=== PATIENT | male | born 1970 | race Caucasian/White ===

== ENCOUNTER → 2016-10-18 | Outpatient (CLI) | payer OTHER ==
[~2016-10-18] MED LIST: /CARB20TAB OR; FLUP25VL IM; GABA-283 PO; RISP2TAB12 OR; RISPERDAL CONSTA IM; TRAZ50TA OR
[2016-10-18 10:22] LABS: MEAN CORPUSCULAR HEMOGLOBIN 32.2 pg (27.0-33.0); MEAN CORPUSCULAR HGB CONC 33.5 g/dl (32.0-36.5); MEAN CORPUSCULAR VOLUME 96.2 fl (80.0-96.0); RED CELL DISTRIBUTION WIDTH 13.4 % (11.5-14.5); WHITE BLOOD COUNT 9.1 K/mm3 (4.0-10.0)
[2016-10-18 11:03] LABS: ALBUMIN/GLOBULIN RATIO 1.54 (1.00-1.93); ALKALINE PHOSPHATASE 125 U/L (45-117); ALT/SGPT 38 U/L (12-78); ANION GAP 9 MEQ/L (8-16); AST/SGOT 17 U/L (15-37); BILIRUBIN,DIRECT < 0.1 MG/DL (0.0-0.2); BILIRUBIN,TOTAL 0.2 MG/DL (0.2-1.0); BLOOD UREA NITROGEN 6 MG/DL (7-18); CALCIUM LEVEL 8.4 MG/DL (8.5-10.1); CARBON DIOXIDE LEVEL 25 MEQ/L (21-32); CHLORIDE LEVEL 97 MEQ/L (98-107); CHOLESTEROL LEVEL 129 MG/DL (<200); CREATININE FOR GFR 0.79 MG/DL (0.70-1.30); GLOMERULAR FILTRATION RATE > 60.0 (>60); GLUCOSE, FASTING 87 MG/DL (70-105); PHOSPHORUS LEVEL 2.9 MG/DL (2.5-4.9); POTASSIUM SERUM 4.2 MEQ/L (3.5-5.1); SODIUM LEVEL 131 MEQ/L (136-145); TOTAL PROTEIN 6.6 GM/DL (6.4-8.2); TRIGLYCERIDES LEVEL 113 MG/DL (<150)
== END ==
LOC: M LAB 09:33
PROVIDERS: ATTEND Nurse Practitioner Psychiatric/Mental Health
DX: Z51.81 Encounter for therapeutic drug level monitoring (principal); Z79.899 Other long term (current) drug therapy

== ENCOUNTER → 2016-11-19 | Outpatient (CLI) | payer OTHER ==
[2016-11-19 17:47] LABS: MEAN CORPUSCULAR HEMOGLOBIN 33.4 pg (27.0-33.0); MEAN CORPUSCULAR HGB CONC 33.9 g/dl (32.0-36.5); MEAN CORPUSCULAR VOLUME 98.5 fl (80.0-96.0); WHITE BLOOD COUNT 6.6 K/mm3 (4.0-10.0)
[2016-11-19 18:21] LABS: ALBUMIN 4.1 GM/DL (3.2-5.2); ALBUMIN/GLOBULIN RATIO 1.32 (1.00-1.93); ALKALINE PHOSPHATASE 122 U/L (45-117); ALT/SGPT 29 U/L (12-78); ANION GAP 7 MEQ/L (8-16); AST/SGOT 16 U/L (15-37); BILIRUBIN,TOTAL 0.3 MG/DL (0.2-1.0); BLOOD UREA NITROGEN 7 MG/DL (7-18); CALCIUM LEVEL 8.6 MG/DL (8.5-10.1); CARBON DIOXIDE LEVEL 25 MEQ/L (21-32); CHLORIDE LEVEL 104 MEQ/L (98-107); CREATININE FOR GFR 0.83 MG/DL (0.70-1.30); GLOMERULAR FILTRATION RATE > 60.0 (>60); GLUCOSE, FASTING 87 MG/DL (70-105); POTASSIUM SERUM 4.6 MEQ/L (3.5-5.1); SODIUM LEVEL 136 MEQ/L (136-145); TOTAL PROTEIN 7.2 GM/DL (6.4-8.2)
== END ==
LOC: M LAB 16:44
PROVIDERS: ATTEND Nurse Practitioner Psychiatric/Mental Health
DX: F25.9 Schizoaffective disorder, unspecified (principal)

== ENCOUNTER → 2020-06-05 | Outpatient (REF) | payer OTHER ==
[~2020-06-05] MED LIST changes: -/CARB20TAB OR; +CARB1TAB20 OR; -GABA-283 PO; +GABA-845 PO
== END ==
LOC: M LAB REF 15:40
PROVIDERS: ATTEND Surgery
DX: Z20.828 Contact with and (suspected) exposure to other viral communicable diseases (principal)

== ENCOUNTER 2025-05-24 09:21 | Inpatient (IN) | payer OTHER, SELFPAY ==
[~2025-05-24] VITALS: Ht 180.3 cm; Wt 85.8 kg
[~2025-05-24 09:21] MED LIST changes: +FLUP25VI3 IM; -FLUP25VL IM; +GABA-284 PO; -GABA-845 PO
[2025-05-24] MEDS: MIDAZOLAM INJ 2 MG/2 ML VIAL IM ONE (09:50)
[2025-05-24] MEDS: OLANZapine INTRAMUSCULAR 10MG VIAL IM ONE (09:50)
[2025-05-24 10:49] LABS: BASO # 0.0 10^3/uL (0.0-0.2); BASO % 0.3 % (0.0-1.0); EOS # 0.0 10^3/uL (0.0-0.5); EOS % 0.2 % (0.0-3.0); LYMPH # 2.2 10^3/uL (1.5-5.0); LYMPH % 18.4 % (24.0-44.0); MONO # 1.1 10^3/uL (0.0-0.8); MONO % 9.1 % (2.0-8.0); NEUTROPHILS # 8.6 10^3/uL (1.5-8.5); NEUTROPHILS % 71.7 % (36.0-66.0); PLATELET COUNT, AUTOMATED 304 10^3/uL (150-450)
[2025-05-24 11:12] LABS: INR 0.95
[2025-05-24 11:22] LABS: ETHYL ALCOHOL (ETHANOL) < 0.003 % (0.000-0.010); SALICYLATE LEVEL < 3.0 MG/DL (<30)
[2025-05-24 11:24] LABS: ALT/SGPT 43 U/L (7.0-40); AST/SGOT 74 U/L (<34); CALCIUM LEVEL 9.7 MG/DL (8.5-10.1); CARBON DIOXIDE LEVEL 28 MMOL/L (20-31); CHLORIDE LEVEL 101 MMOL/L (98-107); CK-MB VALUE MASS 14.6 NG/ML (<3.6); CREATININE FOR GFR 0.78 MG/DL (0.70-1.30); GLOMERULAR FILTRATION RATE > 90.0 (>56); POTASSIUM SERUM 4.6 MMOL/L (3.5-5.1); SODIUM LEVEL 138 MMOL/L (136-145)
[2025-05-24 12:43] LABS: CPK CREATINE PHOSPHOKINASE 1580 U/L (46-171); MB/CK RELATIVE INDEX 0.92 (< OR =4)
[2025-05-24 12:53] LABS: APPEARANCE, URINE CLEAR (CLEAR); BACTERIA, URINE AUTO NEGATIVE (NEGATIVE); BILIRUBIN, URINE AUTO NEGATIVE (NEGATIVE); BLOOD, URINE BLOOD NEGATIVE (NEGATIVE); GLUCOSE, URINE (UA) AUTO NEGATIVE (NEGATIVE); KETONE, URINE AUTO TRACE mg/dL (NEGATIVE); LEUKOCYTE ESTERASE, URINE AUTO NEGATIVE (NEGATIVE); MUCUS, URINE SMALL (NEGATIVE); NITRITE, URINE AUTO NEGATIVE (NEGATIVE); PROTEIN, URINE AUTO 1+ mg/dL (NEGATIVE); RBC, URINE AUTO 0 /HPF (0-3); SPECIFIC GRAVITY URINE AUTO 1.028 (1.002-1.035); SQUAMOUS EPITHELIAL CELL UR AU 0 /HPF (0-6); UROBILINOGEN, URINE AUTO 2.0 mg/dL (0.0-2.0); WBC, URINE AUTO 1 /HPF (0-3)
[2025-05-24 13:13] LABS: AMPHETAMINES LEVEL URINE NEGATIVE (NEGATIVE); BARBITURATES URINE NEGATIVE (NEGATIVE); BENZODIAZEPINES URINE NEGATIVE (NEGATIVE); CANNABINOIDS URINE NEGATIVE (NEGATIVE); COCAINE METABOLITE URINE NEGATIVE (NEGATIVE); METHADONE URINE NEGATIVE (NEGATIVE); OPIATES URINE NEGATIVE (NEGATIVE); PHENCYCLIDINE URINE NEGATIVE (NEGATIVE)
[2025-05-24] MEDS: NS (Normal Saline) 0.9% 1,000 ML IV ONE (14:00)
[2025-05-24] MEDS: OLANZapine ORAL DISINTEGRATING TAB 5MG PO ONE (14:00)
[2025-05-24] MEDS ORDERED: HOME MED LIST COMPLETE! XX SCH (18:40)
[2025-05-24] MEDS ORDERED: ACETAMINOPHEN 325 MG TAB PO PRN (18:45)
[2025-05-24] MEDS ORDERED: MAALOX 30 ML SUSP *UDC PO PRN (18:45)
[2025-05-24] MEDS ORDERED: IBUPROFEN 400 MG TAB PO PRN (18:45)
[2025-05-24] MEDS ORDERED: MOM 30 ML SUSPENSION UDC PO PRN (18:45)
[2025-05-24 20:32] VITALS: BP 138/91; TEMP 97.9; O2SAT 94
[2025-05-26 18:43] VITALS: BP 129/83; TEMP 98.4
[2025-05-27 06:49] VITALS: BP 136/93
[2025-05-27] MEDS: HALOPERIDOL 5 MG TAB PO PRN (10:15)
[2025-05-27] MEDS: LORazepam 1 MG TAB PO PRN (10:15)
[2025-05-27 16:32] VITALS: BP 144/84; TEMP 98; O2SAT 97
[2025-05-28] MEDS: RISPERIDONE 1 MG TAB PO SCH (16:04)
[2025-05-28 17:10] VITALS: BP 137/78; TEMP 97.5; O2SAT 99
[2025-05-28] MEDS: DIVALPROEX 500 MG *ER* TAB PO SCH (21:31)
[2025-05-29 06:34] VITALS: BP 146/87; TEMP 97.4; O2SAT 97
[2025-05-30 06:48] VITALS: BP 130/75; TEMP 97.5; O2SAT 95
[2025-05-30 16:10] VITALS: BP 140/92; TEMP 97; O2SAT 100
[2025-05-30 21:19] VITALS: BP 140/92; TEMP 97; O2SAT 100
[2025-05-31 16:33] VITALS: BP 139/79; TEMP 96.9; O2SAT 99
[2025-05-31 21:07] VITALS: BP 139/79; TEMP 96.9; O2SAT 99
[2025-05-31] MEDS: traZODone 50 MG TAB PO PRN (21:29)
[2025-06-01 06:29] VITALS: BP 159/84; TEMP 97.3; O2SAT 99
[2025-06-02 15:55] VITALS: BP 131/72; TEMP 98.2; O2SAT 98
[2025-06-03] MEDS: DIVALPROEX 250 MG TAB PO SCH (09:47)
[2025-06-03 16:19] VITALS: BP 135/85; TEMP 97.1; O2SAT 99
[2025-06-03] MEDS: DIVALPROEX 500 MG *ER* TAB PO SCH (18:51)
[2025-06-04 08:16] VITALS: BP 153/77; TEMP 97.5; O2SAT 99
[2025-06-04 16:47] VITALS: BP 137/79; TEMP 97.6; O2SAT 98
[2025-06-04] MEDS: DIVALPROEX 500 MG *ER* TAB PO SCH (18:08)
[2025-06-05] MEDS: OLANZapine 5 MG TAB PO PRN (09:04)
[2025-06-05] MEDS: PALIPERIDONE PAL 234MG/1.5ML INJ (FREE PSY INPT ONLY) IM ONE (09:47)
[2025-06-05 13:39] LABS: PLATELET COUNT, AUTOMATED 357 10^3/uL (150-450)
[2025-06-05 13:59] LABS: ALT/SGPT 63 U/L (7.0-40); AST/SGOT 36 U/L (<34); CALCIUM LEVEL 9.1 MG/DL (8.5-10.1); CARBON DIOXIDE LEVEL 29 MMOL/L (20-31); CHLORIDE LEVEL 99 MMOL/L (98-107); CREATININE FOR GFR 0.75 MG/DL (0.70-1.30); GLOMERULAR FILTRATION RATE > 90.0 (>56); POTASSIUM SERUM 4.8 MMOL/L (3.5-5.1); SODIUM LEVEL 138 MMOL/L (136-145)
[2025-06-05 15:25] VITALS: BP 145/86; TEMP 97.5; O2SAT 100
[2025-06-05] MEDS: DIVALPROEX 250 MG TAB PO SCH (21:02)
[2025-06-06 06:13] VITALS: BP 171/92; TEMP 96.8; O2SAT 99
[2025-06-06 16:35] VITALS: BP 146/90; TEMP 98; O2SAT 99
[2025-06-07 14:36] VITALS: BP 136/84; TEMP 97.8; O2SAT 96
[2025-06-08 06:24] VITALS: BP 153/90; TEMP 97.4; O2SAT 99
[2025-06-08 15:28] VITALS: BP 151/83; TEMP 98.1; O2SAT 98
[2025-06-09 06:33] VITALS: BP 135/85; TEMP 97.5; O2SAT 100
[2025-06-09] MEDS ORDERED: PALIPERIDONE PAL 156MG/1ML INJ (FREE PSY INPT ONLY) IM ONE (08:00)
[2025-06-09 15:35] VITALS: BP 153/90; TEMP 97.3; O2SAT 100
[2025-06-10 06:45] VITALS: BP 100/58; TEMP 96.8; O2SAT 99
[2025-06-10] MEDS: PALIPERIDONE PAL 156MG/1ML INJ (FREE PSY INPT ONLY) IM ONE (11:42)
[2025-06-10] MEDS ORDERED: DIVA-65 PO (12:47)
[2025-06-10] MEDS ORDERED: TRAZ-252 PO (12:47)
[2025-06-10] MEDS ORDERED: INVE156I IM (12:47)
== END 2025-06-10 13:50 | disposition home or self-care (01) | DRG 750 ==
LOC: M ED 09:21 → M ED INP 18:44 → M PSY 20:32
PROVIDERS: ADMIT Psychiatry & Neurology Neurology; ATTEND Psychiatry & Neurology Neurology
DX: F20.3 Undifferentiated schizophrenia (principal); F41.9 Anxiety disorder, unspecified; D72.829 Elevated white blood cell count, unspecified